=== PATIENT | female | born 1970 | race Caucasian/White ===

== ENCOUNTER 2016-12-23 16:40 | Emergency (ER) | payer OTHER ==
[~2016-12-23] VITALS: Ht 167.6 cm; Wt 57.0 kg
[2016-12-23 16:42] VITALS: Ht 167.6 cm; Wt 57.0 kg
[2016-12-23] MEDS ORDERED: METOCLOPRAMIDE 10 MG INJ IV STA (17:51)
[2016-12-23] MEDS ORDERED: KETOROLAC 30 MG INJ IV STA (17:51)
[2016-12-23] MEDS ORDERED: DIPHENHYDRAMINE 50 MG INJ IV ONE (18:00)
[2016-12-23] MEDS ORDERED: RIZA5TAB16 PO (18:57)
[2016-12-23] MEDS ORDERED: CARI250T PO (18:57)
[2016-12-23] MEDS ORDERED: SOD CHLORIDE 0.9% 1,000 ML IV STA (19:04)
--- NOTE | 2016-12-23 19:47 | ERD ---
ER Documentation Chief Complaint Date/Time DATE: 12/23/16 TIME: 19:41 Chief Complaint 9/10 head pain x 2 hours HPI 46-year-old female presents with acute on chronic migraine. Patient rates the pain as moderate in severity. Patient states that she usually takes rizatriptan and soma however she ran out. Patient admits to having photophobia and nausea ROS All systems reviewed and are negative except as per history of present illness. Medications Home Meds Active Scripts Carisoprodol* (Soma*) 250 Mg Tablet, 250 MG PO Q8 Y for MUSCLE SPASMS, #20 TAB Prov:SIGRID STEINER PA-C 12/23/16 Rizatriptan Benzoate (Rizatriptan Benzoate) 5 Mg Tab.rapdis, 5 MG PO Q8 Y for MIGRAINE, #20 TAB Prov:SIGRID STEINER PA-C 12/23/16 Allergies Allergies: Coded Allergies: No Known Allergy (Unverified , 12/23/16) PMhx/Soc History of Surgery: No Anesthesia Reaction: No Hx Neurological Disorder: Yes (MIGRAINES, BULGING DISC L1) Hx Respiratory Disorders: No Hx Cardiac Disorders: No Hx Psychiatric Problems: No Hx Miscellaneous Medical Probl: No Hx Alcohol Use: No Hx Substance Use: No Hx Tobacco Use: No Smoking Status: Former smoker Physical Exam Vitals Vital Signs Date Time Temp Pulse Resp B/P Pulse Ox O2 Delivery O2 Flow Rate FiO2 12/23/16 16:42 97.6 89 18 99/70 100 Physical Exam GENERAL: well-developed/well-nourished, in no apparent distress, non-toxic appearing HENT: NC/AT, bilateral tympanic membrane is normal with good cone of light, nares patent, oropharynx clear without exudates EYES: Conjunctiva normal, PERRLA, EOMI, no nystagmus noted NECK: Supple, no lymphadenopathy PULM: CTA bilaterally, no rales, rhonchi, or wheezing heard CV: Normal S1S2, RRR, good capillary refill GI: Soft, non-distended, normal bowel sounds, non-tender BACK: No midline tenderness, no masses, No CVAT EXT: No clubbing, cyanosis, or edema NEURO: Alert and orientated to person, place, and time. CN II-IIX intact. Gait and coordination were normal. Hand meter inspector strength were equal and within normal limits SKIN: Intact, normal turgor PSYCH: Normal mood and mentation, patient denied SI Results 24 hrs Current Medications Medications (Trade) Dose Ordered Sig/Mann Route PRN Reason Start Time Stop Time Status Last Admin Dose Admin Ketorolac Tromethamine (Toradol) 30 mg ONCE STAT IV 12/23/16 17:51 12/23/16 17:52 DC 12/23/16 18:35 Diphenhydramine HCl (Benadryl) 50 mg ONCE ONCE IV 12/23/16 18:00 12/23/16 18:01 DC 12/23/16 18:36 Metoclopramide HCl 10 mg 10 mg ONCE STAT IV 12/23/16 17:51 12/23/16 17:52 DC 12/23/16 18:36 Sodium Chloride (NS) 1,000 ml @ 1,000 mls/hr Q1H STAT IV 12/23/16 19:04 12/23/16 20:03 12/23/16 19:12 Procedures/MDM MDM: 46-year-old female presents with acute on chronic migraine. Low suspicion for subarachnoid hemorrhage, meningitis stroke. Pain relief Benadryl, Toradol and Reglan was given in the ED with some improvement. Neurology exam was normal and I don't recommend a CT scan at this time DISPOSITION: hemodynamically stable and neurovascularly intact to be discharged home. Prescriptions were given. Discussed to follow up with a primary care physician in the next couple days. Return to the ER if condition worsens or not improving as expected. Patient agreed and understood this plan. Departure Diagnosis: Primary Impression: Migraine Condition: Stable Patient Instructions: Migraine Headache: Stages and Treatment, Preventing Migraine Headaches: Triggers, Preventing Migraine Headaches: Medications and Lifestyle Changes Additional Instructions: FOLLOW UP WITH YOUR PRIMARY CARE PHYSICIAN TOMORROW.Return to this facility if you are not improving as expected. Take all medicines as directed. Return to this facility if you are not improving as expected. SIGRID STEINER PA-C Dec 23, 2016 19:47
[2016-12-23 20:03] VITALS: BP 122/72; PULSE 76; RESP 18; TEMP 97.4
== END 2016-12-23 20:02 | disposition home or self-care (01) ==
LOC: FTE 16:40
DX: G43.909 Migraine, unspecified, not intractable, without status migrainosus (principal); Z87.891 Personal history of nicotine dependence
CPT/HCPCS: 96374; 96375; 99284; J1200; J1885; J2765; J7030